=== PATIENT | female | born 1965 | race Caucasian/White ===

== ENCOUNTER 2024-12-15 23:41 | Inpatient (IN) | payer OTHER ==
[2024-12-16] MEDS ORDERED: dilTIAZem 25 MG/5 ML VIAL ONE (00:12)
[2024-12-16 00:21] LABS: Hematocrit 44.1 % (36.0-47.0); Hemoglobin 15.3 g/dL (12.0-16.0); Mean Corpuscular Hemoglobin 31.0 pg (27.0-31.0); Mean Corpuscular Volume 89.5 fL (78.0-98.0); Platelet Count 247 10x3/uL (130-400); Red Blood Cell (RBC) Count 4.93 mill/uL (4.20-5.40); White Blood Cell (WBC) Count 14.67 10x3/uL (4.8-10.8)
[2024-12-16 00:35] LABS: INR-International Normal Ratio 1.0; Prothrombin Time 13.2 sec (12.0-14.7)
[2024-12-16 00:36] LABS: PTT 32.2 sec (22.9-36.1)
[2024-12-16 00:38] LABS: D-Dimer Test 0.34 mcg/mL (0.27-0.43); Lipase 42 U/L (8-78); Magnesium 2.1 mg/dL (1.6-2.6)
[2024-12-16 00:39] LABS: Acetaminophen Less than 10 mcg/mL (Less than 10); Salicylate Less than 8.0 mg/dL (Less than 8.0)
[2024-12-16 00:40] LABS: ALT (SGPT) 25 U/L (Less than 34); AST (SGOT) 34 U/L (11-34); Albumin 4.2 g/dL (3.1-4.5); Alkaline Phosphatase 81 U/L (40-110); Anion Gap 16 mmol/L (10-20); BUN (Urea Nitrogen) 8 mg/dL (9.8-20.1); Bilirubin, Total 0.3 mg/dL (0.3-1.2); CK (CPK) 48 U/L (29-168); Calc. Creatinine Clearance 0 mL/min (70-130); Calcium 9.5 mg/dL (7.8-10.44); Carbon Dioxide 22 mmol/L (22-29); Chloride 109 mmol/L (98-107); Globulin 3.4 g/dL (2.4-3.5); Glucose 137 mg/dL (70-105); Potassium 3.5 mmol/L (3.5-5.1); Sodium 143 mmol/L (136-145)
[2024-12-16 00:42] LABS: Platelet Adequacy Comment Platelets Normal
[2024-12-16 00:44] LABS: Troponin I Less than 0.010 ng/mL (< 0.028)
[2024-12-16] MEDS ORDERED: Acetaminophen 325 MG TAB PO PRN (03:10)
[2024-12-16] MEDS ORDERED: Ondansetron PF 4 MG/2 ML Vial IVP PRN (03:10)
[2024-12-16 03:53] LABS: #Basophils 0.07 10x3/uL (0.0-0.2); #Eosinophils 0.14 10x3/uL (0.0-0.7); #Monocytes 1.35 10x3/uL (0.11-0.59); #Neutrophils 8.44 10x3/uL (1.40-6.50); %Basophils 0.5 % (0.0-1.0); %Eosinophils 1.0 % (0.0-10.0); %Lymphocytes 29.0 % (21.0-51.0); %Monocytes 9.5 % (0.0-10.0); %Neutrophils 59.7 % (42.0-75.0); Hematocrit 43.2 % (36.0-47.0); Hemoglobin 14.4 g/dL (12.0-16.0); Mean Corpuscular Hemoglobin 30.7 pg (27.0-31.0); Mean Corpuscular Volume 92.1 fL (78.0-98.0); Platelet Count 249 10x3/uL (130-400); Red Blood Cell (RBC) Count 4.69 mill/uL (4.20-5.40); White Blood Cell (WBC) Count 14.15 10x3/uL (4.8-10.8)
[2024-12-16 04:17] LABS: Anion Gap 13 mmol/L (10-20); BUN (Urea Nitrogen) 8 mg/dL (9.8-20.1); Calc. Creatinine Clearance 0 mL/min (70-130); Calcium 8.6 mg/dL (7.8-10.44); Carbon Dioxide 21 mmol/L (22-29); Chloride 111 mmol/L (98-107); Glucose 126 mg/dL (70-105); Potassium 3.8 mmol/L (3.5-5.1); Sodium 141 mmol/L (136-145); Troponin I Less than 0.010 ng/mL (< 0.028)
[2024-12-16 07:03] LABS: Troponin I Less than 0.010 ng/mL (< 0.028)
[2024-12-16 07:41] VITALS: BMI 32.3
[2024-12-16] MEDS ORDERED: Diltiazem HCl/D5W 125 MG in Premix 1 BAG IVPB SCH (08:00)
[2024-12-16] MEDS: Apixaban 5 MG TAB PO SCH (09:38)
[2024-12-16] MEDS: Metoprolol Succinate XL 25 MG ER.TAB PO SCH (09:38)
[2024-12-16 12:37] VITALS: BP 138/81; TEMP 98.7
[2024-12-16] MEDS ORDERED: Rosuvastatin 20 MG TAB PO SCH (21:00)
== END 2024-12-16 14:00 | disposition home or self-care (01) | DRG 310 ==
LOC: ERS 23:41 → ERHOLD 12-16 02:27 → OBS 12-16 04:14
PROVIDERS: ADMIT Student in an Organized Health Care Education/Training Program; ATTEND Internal Medicine
DX: I48.91 Unspecified atrial fibrillation (principal); I10 Essential (primary) hypertension; F17.210 Nicotine dependence, cigarettes, uncomplicated; E78.5 Hyperlipidemia, unspecified; F41.9 Anxiety disorder, unspecified; F10.10 Alcohol abuse, uncomplicated; Z79.01 Long term (current) use of anticoagulants; Z98.891 History of uterine scar from previous surgery
CPT/HCPCS: 36415; 71045; 80053; 80307; 82550; 83605; 83690; 83735; 83880; 84443; 84484; 85025; 85379; 85610; 85730; 93005; 96365; 96366; 96376